=== PATIENT | male | born 1955 | race African-American/Black ===

== ENCOUNTER 2021-10-01 14:48 | Emergency (ER) | payer OTHER ==
[2021-10-01] MEDS ORDERED: Lidocaine 1% w/Epinephrine 1:100K 20 ML VIAL ONE (16:26)
== END 2021-10-01 17:25 ==
LOC: CSHERS 14:48
DX: L02.31 Cutaneous abscess of buttock (principal); I10 Essential (primary) hypertension; I25.10 Atherosclerotic heart disease of native coronary artery without angina pectoris; E11.40 Type 2 diabetes mellitus with diabetic neuropathy, unspecified; D64.9 Anemia, unspecified; K21.9 Gastro-esophageal reflux disease without esophagitis
CPT/HCPCS: 10060